=== PATIENT | male | born 1960 | race Caucasian/White ===

== ENCOUNTER → 2022-09-24 | Outpatient (CLI) | payer BC ==
--- NOTE | 2022-09-24 09:03 | XR ---
EXAMINATION TYPE: XR chest 2V DATE OF EXAM: 09/24/2022 8:56 AM COMPARISON: None TECHNIQUE: XR chest 2V Frontal and lateral views of the chest. CLINICAL INDICATION:Male, 62 years old with history of MRI Clearance; FINDINGS: Lungs/Pleura: There is no evidence of pleural effusion, focal consolidation, or pneumothorax. Pulmonary vascularity: Unremarkable. Heart/mediastinum: Cardiomediastinal silhouette is unremarkable. Musculoskeletal: No acute osseous pathology. Midline sternotomy wires and surgical clips project over the mediastinum. IMPRESSION: No acute cardiopulmonary disease/process.
== END | disposition home or self-care (01) ==
LOC: RADXRMAIN 08:35
PROVIDERS: ATTEND Orthopaedic Surgery Hand Surgery
DX: Z18.10 Retained metal fragments, unspecified (principal)
CPT/HCPCS: 71046